=== PATIENT | male | born 1985 | race Hispanic/Latino ===

== ENCOUNTER 2019-05-12 09:46 | Emergency (ER) | payer SELFPAY ==
[2019-05-12] MEDS ORDERED: ONDANSETRON ODT 4 MG TAB ONE (10:26)
== END 2019-05-12 10:42 | disposition home or self-care (01) ==
LOC: EDH 09:46
DX: R11.2 Nausea with vomiting, unspecified (principal); Z72.0 Tobacco use

== ENCOUNTER 2019-06-08 17:07 | Emergency (ER) | payer OTHER ==
[2019-06-08] MEDS ORDERED: ONDANSETRON ODT 4 MG TAB ONE (17:23)
== END 2019-06-08 18:26 | disposition home or self-care (01) ==
LOC: EDH 17:07
DX: R11.2 Nausea with vomiting, unspecified (principal); Z72.0 Tobacco use
CPT/HCPCS: 87804

== ENCOUNTER 2019-10-12 13:34 | Emergency (ER) | payer OTHER ==
[2019-10-12] MEDS ORDERED: ONDANSETRON ODT 4 MG TAB ONE (13:54)
[2019-10-12] MEDS ORDERED: IBUPROFEN 600 MG TABLET ONE (14:01)
== END 2019-10-12 15:13 | disposition home or self-care (01) ==
LOC: EDH 13:34
DX: A08.4 Viral intestinal infection, unspecified (principal); Z87.891 Personal history of nicotine dependence

== ENCOUNTER 2020-12-05 09:45 | Emergency (ER) | payer SELFPAY ==
[2020-12-05] MEDS ORDERED: ONDANSETRON ODT 4MG TAB ONE (10:07)
== END 2020-12-05 10:35 | disposition home or self-care (01) ==
LOC: EDH 09:45
DX: R11.2 Nausea with vomiting, unspecified (principal)

== ENCOUNTER 2021-09-02 12:03 | Emergency (ER) | payer OTHER ==
[~2021-09-02] VITALS: Ht 182.9 cm; Wt 74.8 kg
[2021-09-02 12:20] LABS: BASOPHILS % (AUTO) 0.3 % (0.0-5.0); EOSINOPHILS % (AUTO) 0.7 % (0.0-8.0); HEMATOCRIT 46.3 % (42-54); LYMPHOCYTES % (AUTO) 22.2 % (21.0-51.0); MEAN CORPUSCULAR HEMOGLOBIN 31.2 pg (27.0-33.0); MEAN CORPUSCULAR HGB CONC 33.9 g/dL (32.0-36.0); MONOCYTES % (AUTO) 7.8 % (3.0-13.0); NEUTROPHILS % (AUTO) 68.7 % (40.0-77.0); PLATELET COUNT (AUTO) 276 K/uL (130-400); RED BLOOD CELL COUNT(AUTO) 5.03 MIL/uL (4.50-6.20); RED CELL DISTRIBUTION WIDTH 12.5 % (11.0-15.5); WHITE BLOOD COUNT (AUTO) 7.1 K/uL (4.8-10.8)
[2021-09-02 12:31] LABS: CREATININE 1.1 mg/dL (0.5-1.5)
[2021-09-02 12:35] LABS: ALBUMIN 4.5 g/dL (3.5-5.0); BILIRUBIN,TOTAL 1.7 mg/dL (0.2-1.0); TOTAL PROTEIN, SERUM 8.1 g/dL (6.0-8.3)
[2021-09-02] MEDS ORDERED: ONDANSETRON 4MG INJ IVP ONE (15:00)
[2021-09-02] MEDS ORDERED: 0.9%NACL 1000ML 1,000 ML IV SCH (15:00)
[2021-09-02 15:30] LABS: POTASSIUM 3.9 mmol/L (3.5-5.1)
[2021-09-02] MEDS ORDERED: ONDA4TAB4 PO (17:29)
[2021-09-02 18:08] VITALS: BP 126/78
== END 2021-09-02 18:47 | disposition home or self-care (01) ==
LOC: EDH 12:03
DX: R11.2 Nausea with vomiting, unspecified (principal); R51.9 Headache, unspecified; Z20.822 Contact with and (suspected) exposure to COVID-19; Z79.899 Other long term (current) drug therapy
CPT/HCPCS: 36415; 80048; 80053; 85025; 87635; 87804 ×2; 96361; 96374; 99285; C9803; J2405

== ENCOUNTER 2021-10-31 08:13 | Emergency (ER) | payer SELFPAY ==
[~2021-10-31] VITALS: Ht 182.9 cm; Wt 74.8 kg
[~2021-10-31 08:13] MED LIST: ONDA4TAB4 PO
[2021-10-31 08:15] VITALS: BP 128/66
[2021-10-31] MEDS ORDERED: DOXY-336 PO (12:43)
[2021-10-31] MEDS ORDERED: BENZ-39 PO (12:43)
== END 2021-10-31 13:09 | disposition home or self-care (01) ==
LOC: EDH 08:13
DX: J20.8 Acute bronchitis due to other specified organisms (principal); B96.89 Other specified bacterial agents as the cause of diseases classified elsewhere; Z79.899 Other long term (current) drug therapy
CPT/HCPCS: 71046; 87635; 87804 ×2; 87880; 99284; C9803

== ENCOUNTER 2022-04-20 10:54 | Emergency (ER) | payer OTHER ==
[~2022-04-20] VITALS: Ht 182.9 cm; Wt 74.8 kg
[~2022-04-20 10:54] MED LIST changes: +BENZ-39 PO; +DOXY-336 PO
[2022-04-20 11:22] LABS: CREATININE 0.9 mg/dL (0.5-1.5); POTASSIUM 4.2 mmol/L (3.5-5.1)
[2022-04-20 11:24] LABS: APPEARANCE,URINE Clear (CLEAR); BILIRUBIN,URINE Negative (NEGATIVE); COLOR,URINE Yellow (YELLOW); GLUCOSE, URINE (UA) Negative (NEGATIVE); KETONES,URINE Negative (NEGATIVE); LEUKOCYTE ESTERASE ,URINE Negative (NEGATIVE); NITRATE,URINE Negative (NEGATIVE); OCCULT BLOOD,URINE Negative (NEGATIVE); PH,URINE 7.5 (5.0-8.0); PROTEIN,URINE Negative (NEGATIVE)
[2022-04-20 11:27] LABS: ALBUMIN 4.2 g/dL (3.5-5.0); BILIRUBIN,TOTAL 1.1 mg/dL (0.2-1.0); TOTAL PROTEIN, SERUM 7.7 g/dL (6.0-8.3)
[2022-04-20 11:47] LABS: BASOPHILS % (AUTO) 0.3 % (0.0-5.0); EOSINOPHILS % (AUTO) 4.1 % (0.0-8.0); HEMATOCRIT 46.7 % (42-54); LYMPHOCYTES % (AUTO) 19.9 % (21.0-51.0); MEAN CORPUSCULAR HEMOGLOBIN 30.7 pg (27.0-33.0); MEAN CORPUSCULAR HGB CONC 33.4 g/dL (32.0-36.0); MEAN CORPUSCULAR VOLUME 91.9 fL (79-99); MONOCYTES % (AUTO) 9.5 % (3.0-13.0); NEUTROPHILS % (AUTO) 65.9 % (40.0-77.0); PLATELET COUNT (AUTO) 267 K/uL (130-400); RED BLOOD CELL COUNT(AUTO) 5.08 MIL/uL (4.50-6.20); RED CELL DISTRIBUTION WIDTH 12.5 % (11.0-15.5); WHITE BLOOD COUNT (AUTO) 6.3 K/uL (4.8-10.8)
[2022-04-20] MEDS ORDERED: CEPH500B PO (12:15)
[2022-04-20 12:54] VITALS: BP 126/74
== END 2022-04-20 12:58 | disposition home or self-care (01) ==
LOC: EDH 10:54
DX: R30.0 Dysuria (principal); Z79.899 Other long term (current) drug therapy
CPT/HCPCS: 36415; 80053; 81003; 85025

== ENCOUNTER 2022-08-31 09:14 | Emergency (ER) | payer OTHER ==
[~2022-08-31] VITALS: Ht 182.9 cm; Wt 71.2 kg
[~2022-08-31 09:14] MED LIST changes: +CEPH500B PO
[2022-08-31] MEDS ORDERED: ONDA4TAB10 PO (10:28)
[2022-08-31 11:06] VITALS: BP 129/78
== END 2022-08-31 11:10 | disposition home or self-care (01) ==
LOC: EDH 09:14
DX: R11.0 Nausea (principal)
CPT/HCPCS: 87804

== ENCOUNTER 2023-07-04 13:27 | Emergency (ER) | payer OTHER ==
[~2023-07-04] VITALS: Ht 182.9 cm; Wt 74.8 kg
[~2023-07-04 13:27] MED LIST changes: -DOXY-336 PO; +DOXY-469 PO; +ONDA4TAB10 PO
[2023-07-04 13:29] VITALS: BP 136/87; PULSE 85; RESP 16
[2023-07-04] MEDS ORDERED: OFLO35OS OD (14:48)
== END 2023-07-04 14:57 | disposition home or self-care (01) ==
LOC: EDH 13:27
DX: H10.89 Other conjunctivitis (principal); H10.022 Other mucopurulent conjunctivitis, left eye; H57.12 Ocular pain, left eye; Z79.899 Other long term (current) drug therapy; Z98.890 Other specified postprocedural states